=== PATIENT | female | born 1990 | race Caucasian/White ===

== ENCOUNTER 2022-04-26 22:19 | Emergency (ER) | payer OTHER ==
[2022-04-26 23:09] LABS: BASOPHIL 0.2 % (0-2); EOSINOPHIL 0.7 % (0-5); HCT 37.3 % (37.0-47.0); HGB 12.4 g/dl (12.5-16.0); LYMPHOCYTE 12.2 % (15-48); MCH 33.3 pg (25.0-31.0); MCHC 33.2 g/dL (32.0-36.0); MCV 100.3 fL (78.0-100.0); MONOCYTE 0.6 % (0-12); NEUTROPHIL 85.9 % (41-80); NRBC 0; PLT 322 K/uL (150-400); RBC 3.72 M/uL (4.20-5.40); RDW 11.1 % (11.5-14.0); WBC 8.5 K/uL (4.0-10.5)
[2022-04-26 23:31] LABS: BUN/CREAT RATIO (CALC) 19.4 RATIO; CREATININE 0.62 mg/dL (0.51-0.95); POTASSIUM 3.3 mmol/L (3.5-5.1)
[2022-04-26 23:51] LABS: CORONAVIRUS 2019 SARS-COV-2 NEGATIVE (NEGATIVE); INFLUENZA A NAA NEGATIVE (NEGATIVE)
[2022-04-27 00:41] LABS: BILIRUBIN 1+ mg/dL (NEGATIVE); BLOOD 3+ Ery/uL (NEGATIVE); CLARITY CLEAR (CLEAR); COLOR YELLOW (YELLOW); GLUCOSE (U) NORMAL (NORMAL); LEUKOCYTES 2+ Leu/uL (NEGATIVE); NITRITE POSITIVE (NEGATIVE); PROTEIN 2+ mg/dL (NEGATIVE); pH 5.5 (5.0-9.0)
[2022-04-27 01:00] LABS: BACTERIA TRACE; SQUAMOUS EPITHELIAL CELLS RARE; URINARY RBC TNTC
[2022-04-27] MEDS ORDERED: ONDANSETRON ODT4 MG PO (01:56)
[2022-04-27] MEDS ORDERED: BACTRIM DS TAB1 EACH PO (01:56)
[2022-04-27] MEDS ORDERED: DIFLUCAN150 MG PO (01:56)
== END 2022-04-27 01:56 | disposition home or self-care (01) ==
LOC: FER 22:19
PROVIDERS: Emergency Medicine; Nurse Practitioner Family
DX: N39.0 Urinary tract infection, site not specified (principal); R11.2 Nausea with vomiting, unspecified; Z20.822 Contact with and (suspected) exposure to COVID-19
CPT/HCPCS: 36415; 80048; 81001; 85025; J1885; J2405; J7030; U0002

== ENCOUNTER → 2022-06-12 | Day surgery (SDC) | payer OTHER ==
[~2022-06-12] VITALS: Ht 163 cm; Wt 83.0 kg
[~2022-06-12] MED LIST: BACTRIM DS TAB1 EACH PO; DIFLUCAN150 MG PO; ONDANSETRON ODT4 MG PO
[2022-06-12 16:31] LABS: HCT 35.5 % (37.0-47.0); HGB 11.6 g/dl (12.5-16.0); MCH 33.1 pg (25.0-31.0); MCHC 32.7 g/dL (32.0-36.0); MCV 101.4 fL (78.0-100.0); MPV 9.6 fL (6.0-9.5); RBC 3.5 M/uL (4.20-5.40); RDW 12.5 % (11.5-14.0); WBC 6.6 K/uL (4.0-10.5)
== END | disposition home or self-care (01) ==
LOC: FAS 09:58
PROVIDERS: Obstetrics & Gynecology
DX: O03.4 Incomplete spontaneous abortion without complication (principal)
CPT/HCPCS: 36415; 86850; 86900; 86901; J1100; J1170; J1885; J2250; J2405; J3010; J7050; J7120